=== PATIENT | female | born 1960 | race Caucasian/White ===

== ENCOUNTER 2021-03-06 09:11 | Day surgery (SDC) | payer OTHER ==
[~2021-03-06] VITALS: Ht 154.9 cm; Wt 77.3 kg
[~2021-03-06 09:11] MED LIST: SODIUM CHLORIDE 0.9% 1,000 ML IV ONE; SODIUM CHLORIDE 0.9% 1,000 ML ONE
[2021-03-06] MEDS ORDERED: PROPOFOL 1% 20 ML VIAL IVP ONE (09:12)
[2021-03-06 09:34] LABS: COVID AG,FIA SOURCE NASOPHARYNGEAL
== END 2021-03-06 12:10 | disposition home or self-care (01) ==
LOC: SURGERY 09:11
PROVIDERS: ATTEND Student in an Organized Health Care Education/Training Program
DX: K62.5 Hemorrhage of anus and rectum (principal); K63.5 Polyp of colon; D12.3 Benign neoplasm of transverse colon; D12.5 Benign neoplasm of sigmoid colon; K57.30 Diverticulosis of large intestine without perforation or abscess without bleeding; K64.4 Residual hemorrhoidal skin tags; I10 Essential (primary) hypertension; K21.9 Gastro-esophageal reflux disease without esophagitis; K64.8 Other hemorrhoids; K29.50 Unspecified chronic gastritis without bleeding; K25.9 Gastric ulcer, unspecified as acute or chronic, without hemorrhage or perforation; K44.9 Diaphragmatic hernia without obstruction or gangrene; K21.00 Gastro-esophageal reflux disease with esophagitis, without bleeding; Z87.891 Personal history of nicotine dependence; Z91.040 Latex allergy status; Z90.710 Acquired absence of both cervix and uterus; Z72.89 Other problems related to lifestyle; Z98.890 Other specified postprocedural states; Z79.899 Other long term (current) drug therapy; Z86.010 Personal history of colon polyps
CPT/HCPCS: 43239; 45380; 45385; 87426; 88305; 88312; 88313; C1769; C9803; J2704; J7030